=== PATIENT | female | born 1995 | race Caucasian/White ===

== ENCOUNTER 2018-10-25 23:22 | Emergency (ER) | payer OTHER ==
[2018-10-26] MEDS: DEXAMETHASONE 10 MG/ML 1 ML INJ IM (01:14)
[2018-10-26] MEDS: CEFTRIAXONE 1 GM INJ IM (01:14)
== END 2018-10-26 02:14 | disposition home or self-care (01) ==
LOC: FTE 23:22
DX: J03.90 Acute tonsillitis, unspecified (principal)
CPT/HCPCS: 96372; 99284-25